=== PATIENT | female | born 1990 | race Caucasian/White ===

== ENCOUNTER → 2019-08-02 03:53 | Observation (INO) ==
[2019-08-02 02:43] LABS: Amphetamine Screen,Urine Negative ng/mL (Cutoff=1000); Barbiturate Screen,Urine Negative ng/mL (Cutoff=200); Benzodiazepines Screen,Urine Negative ng/mL (Cutoff=200); Cannabinoid Screen,Urine Negative ng/mL (Cutoff = 50); Cocaine Screen,Urine Negative ng/mL (Cutoff= 300); Opiate Screen,Urine Negative ng/mL (Cutoff=300); Phencyclidine Screen,Urine Negative ng/mL (Cutoff=25)
== END | disposition home or self-care (01) ==
LOC: 1NENULAB
PROVIDERS: ADMIT Advanced Practice Midwife; ATTEND Advanced Practice Midwife

== ENCOUNTER 2019-08-02 22:44 | Inpatient (IN) ==
[2019-08-02 21:05] LABS: Amphetamine Screen,Urine Negative ng/mL (Cutoff=1000); Barbiturate Screen,Urine Negative ng/mL (Cutoff=200); Benzodiazepines Screen,Urine Negative ng/mL (Cutoff=200); Cannabinoid Screen,Urine Negative ng/mL (Cutoff = 50); Cocaine Screen,Urine Negative ng/mL (Cutoff= 300); Opiate Screen,Urine Negative ng/mL (Cutoff=300); Phencyclidine Screen,Urine Negative ng/mL (Cutoff=25)
[~2019-08-02 22:44] MED LIST: *HR* Nalbuphine 10 MG/ML AMPUL IVP PRN; Famotidine 20 MG/2 ML VIAL IVP PRN; Lidocaine 1% 20 ML MDV INFILT PRN; Metoclopramide 10 MG/2 ML VIAL IVP PRN; Naloxone 0.4 MG/ML INJ IVP PRN; Ondansetron 4 MG/2 ML VIAL IVP PRN
[2019-08-02] MEDS: Ringers Solution, Lactated 1,000 ML IVC SCH (23:27)
[2019-08-02 23:42] LABS: Basophils # 0.1 K/mcL (0.0-0.2); Basophils % 0.2 %; Hematocrit 34.5 % (35.3-44.9); Hemoglobin 12.3 g/dL (11.5-15.4); Immature Granulocytes % 0.6 % (0-4); Lymphocytes # 1.8 K/mcL (0.6-4.6); Lymphocytes % 7.6 %; Mean Corpuscular HGB Conc 35.7 g/dL (31.6-35.5); Mean Corpuscular Hemoglobin 31.1 pg (28.0-33.3); Mean Corpuscular Volume 87.3 fL (83.0-100.0); Mean Platelet Volume 10.5 fL (9.4-12.4); Monocytes # 0.8 K/mcL (0.0-1.3); Monocytes % 3.3 %; Platelet Count 361 K/mcL (140-400); Red Blood Count 3.95 M/mcL (3.82-4.97); Red Cell Distribution Width 13.1 % (11.5-14.5); Segmented Neutrophils % 88.3 %; White Blood Count 23.8 K/mcL (4.3-11.1)
[2019-08-03] MEDS ORDERED: *HR* FentaNYL (PF) 100 MCG/2 ML VIAL ONE (00:28)
[2019-08-03] MEDS ORDERED: Ropivacaine/PF 0.2% 20 ML VIAL ONE (00:28)
[2019-08-03] MEDS ORDERED: Epidural Premix (fent/bupiv) 110 ML EP ONE (00:29)
[2019-08-03] MEDS: Ringers Solution, Lactated 1,000 ML IVC SCH (00:31)
[2019-08-03] MEDS ORDERED: EPHEDrine 50 MG/ML VIAL IVP PRN (00:52)
[2019-08-03] MEDS ORDERED: Epidural Premix (fent/bupiv) 110 ML EP SCH (01:00)
[2019-08-03] MEDS ORDERED: Oxytocin 20 units/ LR 1000 mL 20 UNIT/1,000 ML BAG IVC ONE (02:52)
[2019-08-03] MEDS ORDERED: Acetaminophen 325 MG TABLET PO PRN ×2 (03:49→06:16)
[2019-08-03] MEDS ORDERED: Ibuprofen 600 MG TABLET PO PRN ×2 (03:49→06:16)
[2019-08-03] MEDS ORDERED: Oxytocin 20 units/ LR 1000 mL 20 UNIT/1,000 ML BAG IVC SCH ×2 (04:00→06:16)
[2019-08-03] MEDS: Prenatal Vit/FA 1 EACH TABLET PO SCH (08:51)
[2019-08-03] MEDS ORDERED: Prenatal Vit/FA 1 EACH TABLET PO SCH (09:00)
[2019-08-04 08:02] VITALS: BP 111/65
[2019-08-04] MEDS: Prenatal Vit/FA 1 EACH TABLET PO SCH (09:33)
== END 2019-08-04 12:32 | disposition home or self-care (01) | DRG 560 ==
LOC: 1NENULAB → 1NENUOBS 08-03 06:09
PROVIDERS: ADMIT Obstetrics & Gynecology; ATTEND Obstetrics & Gynecology